=== PATIENT | male | born 1985 | race Hispanic/Latino ===

== ENCOUNTER 2025-05-02 13:20 | Emergency (ER) | payer OTHER ==
[~2025-05-02] VITALS: Ht 180.3 cm; Wt 111.1 kg
[~2025-05-02 13:20] MED LIST: CLONIDINE HCL0.3 MG PO; LOSARTAN POTASS25 MG PO; METOPROLOL TART25 MG PO
[2025-05-02 13:37] VITALS: PULSE 102; RESP 16; TEMP 98.1; O2SAT 100
[2025-05-02] MEDS ORDERED: LIDOCAINE HCL 2% LOCAL 20 ML VIAL ONE (13:43)
[2025-05-02] MEDS ORDERED: TETANUS/DIPHTHERIA TOX ADULT 0.5 ML SYR ONE ×2 (13:43→16:08)
[2025-05-02] MEDS: LIDOCAINE 1% 10 ML MULTIDOSE VIAL IJ ONE (16:11)
[2025-05-03] MEDS ORDERED: TETANUS/DIPHTHERIA TOX ADULT 0.5 ML SYR IM ONE (09:00)
== END 2025-05-02 14:24 | disposition home or self-care (01) ==
LOC: FSED 13:28
DX: S51.811A Laceration without foreign body of right forearm, initial encounter (principal); W26.8XXA Contact with other sharp object(s), not elsewhere classified, initial encounter; Y92.89 Other specified places as the place of occurrence of the external cause; I10 Essential (primary) hypertension
CPT/HCPCS: 12002; 90471; 90714; 99284; J2003

== ENCOUNTER 2025-05-14 14:18 | Emergency (ER) | payer OTHER ==
[~2025-05-14] VITALS: Ht 180.3 cm; Wt 94.4 kg
[2025-05-14] MEDS ORDERED: IBUPROFEN600 MG PO (14:50)
[2025-05-14] MEDS ORDERED: DOXYCYCLINE HY100 MG PO (14:50)
[2025-05-14] MEDS: BACITRACIN ZINC 0.9GM TP ONE (15:08)
[2025-05-14 15:14] VITALS: PULSE 89; RESP 18; TEMP 98.6; O2SAT 98
== END 2025-05-14 15:14 | disposition home or self-care (01) ==
LOC: FSED 14:31
DX: Z48.02 Encounter for removal of sutures (principal); L03.113 Cellulitis of right upper limb; I10 Essential (primary) hypertension
CPT/HCPCS: 99283; S0630